=== PATIENT | male | born 1950 | race Caucasian/White ===

== ENCOUNTER 2025-01-06 12:51 | Outpatient (CLI) | payer MEDICARE, OTHER | END 2025-01-06 12:52 | disposition home or self-care (01) | LOC: CSHWCC 12:51 | PROVIDERS: ATTEND Nurse Practitioner Family | DX: M27.2 Inflammatory conditions of jaws (principal); Z92.3 Personal history of irradiation | CPT/HCPCS: G0277 ==

== ENCOUNTER 2025-01-07 13:13 | Outpatient (CLI) | payer MEDICARE, OTHER | END 2025-01-07 13:14 | disposition home or self-care (01) | LOC: CSHWCC 13:13 | PROVIDERS: ATTEND Nurse Practitioner Family | DX: M27.2 Inflammatory conditions of jaws (principal); Z92.3 Personal history of irradiation | CPT/HCPCS: G0277 ==

== ENCOUNTER 2025-01-13 13:03 | Outpatient (CLI) | payer MEDICARE, OTHER | END 2025-01-13 13:04 | disposition home or self-care (01) | LOC: CSHWCC 13:03 | PROVIDERS: ATTEND Nurse Practitioner Family | DX: M27.2 Inflammatory conditions of jaws (principal); Z92.3 Personal history of irradiation | CPT/HCPCS: G0277 ==

== ENCOUNTER 2025-01-14 13:09 | Outpatient (CLI) | payer MEDICARE, OTHER | END 2025-01-14 13:10 | disposition home or self-care (01) | LOC: CSHWCC 13:09 | PROVIDERS: ATTEND Nurse Practitioner Family | DX: M27.2 Inflammatory conditions of jaws (principal); Z92.3 Personal history of irradiation | CPT/HCPCS: G0277 ==

== ENCOUNTER 2025-01-15 12:55 | Outpatient (CLI) | payer MEDICARE, OTHER | END 2025-01-15 12:56 | disposition home or self-care (01) | LOC: CSHWCC 12:55 | PROVIDERS: ATTEND Nurse Practitioner Family | DX: M27.2 Inflammatory conditions of jaws (principal); Z92.3 Personal history of irradiation | CPT/HCPCS: G0277 ==

== ENCOUNTER 2025-01-20 12:30 | Outpatient (CLI) | payer MEDICARE, OTHER | END 2025-01-20 12:31 | disposition home or self-care (01) | LOC: CSHWCC 12:30 | PROVIDERS: ATTEND Nurse Practitioner Family | DX: M27.2 Inflammatory conditions of jaws (principal); Z92.3 Personal history of irradiation | CPT/HCPCS: G0277 ==

== ENCOUNTER 2025-01-21 12:42 | Outpatient (CLI) | payer MEDICARE, OTHER | END 2025-01-21 12:43 | disposition home or self-care (01) | LOC: CSHWCC 12:42 | PROVIDERS: ATTEND Nurse Practitioner Family | DX: M27.2 Inflammatory conditions of jaws (principal); Z92.3 Personal history of irradiation | CPT/HCPCS: G0277 ==

== ENCOUNTER 2025-01-22 12:47 | Outpatient (CLI) | payer MEDICARE, OTHER | END 2025-01-22 12:48 | disposition home or self-care (01) | LOC: CSHWCC 12:47 | PROVIDERS: ATTEND Nurse Practitioner Family | DX: M27.2 Inflammatory conditions of jaws (principal); Z92.3 Personal history of irradiation | CPT/HCPCS: G0277 ==